=== PATIENT | female | born 1980 | race Caucasian/White ===

== ENCOUNTER 2022-04-27 10:15 | Day surgery (SDC) | payer BC ==
[2022-04-25 14:04] VITALS: BMI 42.5
[2022-04-27] MEDS ORDERED: PROPOFOL 20 ML ONE ×2 (10:37→12:06)
[2022-04-27] MEDS ORDERED: MIDAZOLAM HCL 2 MG/2 ML SINGLE DOSE VIAL ONE (10:37)
[2022-04-27] MEDS ORDERED: SEVOFLURANE 250 ML BTL ONE (10:46)
[2022-04-27] MEDS ORDERED: BUPIVACAINE HCL/PF 2.5 MG/ML - 30 ML VIAL IJ ONE (10:57)
[2022-04-27] MEDS ORDERED: PROMETHAZINE HCL 25 MG/1 ML VIAL IVPB PRN (11:15)
[2022-04-27] MEDS ORDERED: ONDANSETRON 4 MG/2 ML VIAL IVPUSH PRN (11:15)
[2022-04-27] MEDS ORDERED: oxyCODONE HCL 5 MG TABLET PO PRN ×2 (11:15)
[2022-04-27] MEDS ORDERED: LACTATED RINGERS SOLUTION 1,000 ML IV SCH (11:15)
[2022-04-27] MEDS ORDERED: DEXAMETHASONE SOD PHOSPHATE 4 MG/1 ML VIAL ONE (12:21)
[2022-04-27] MEDS ORDERED: ONDANSETRON 4 MG/2 ML VIAL ONE (12:21)
[2022-04-27] MEDS ORDERED: ceFAZolin SODIUM 1 GM VIAL ONE (12:21)
[2022-04-27] MEDS ORDERED: KETOROLAC TROMETHAMINE 30 MG/1 ML VIAL ONE (12:21)
[2022-04-27] MEDS ORDERED: oxyCODONE HCL 5 MG TABLET ONE (14:10)
[2022-04-27 14:16] VITALS: TEMP 97
[2022-04-27 14:50] VITALS: BP 130/85; PULSE 70; RESP 16
== END 2022-04-27 14:50 | disposition home or self-care (01) ==
LOC: FASU 10:15
PROVIDERS: ATTEND Orthopaedic Surgery Hand Surgery
PROC: 0RG Upper Joints, Fusion (ICD-10-PCS; 2022-04-27)
PROC: 0MQ80ZZ Repair Left Hand Bursa and Ligament, Open Approach (ICD-10-PCS; principal; 2022-04-27 12:22)
DX: S53.32XA Traumatic rupture of left ulnar collateral ligament, initial encounter (principal); S63.642A Sprain of metacarpophalangeal joint of left thumb, initial encounter; X58.XXXA Exposure to other specified factors, initial encounter; Y93.9 Activity, unspecified; Y92.9 Unspecified place or not applicable
CPT/HCPCS: 84703; 94760; C1713